=== PATIENT | male | born 1950 | race Two or more races ===

== ENCOUNTER 2019-01-23 17:47 | Inpatient (IN) | payer OTHER ==
[~2019-01-23] VITALS: Ht 182.9 cm; Wt 84.8 kg
--- NOTE | 2019-01-23 18:02 | NUR ---
GENERALIZED WEAKNESS AND SOB X YESTERDAY, HX OF LOW HEMOGLOBIN BLOOD TRANSFUSION 1 MONTH AGO. SKIN IS WARM, DRY, INTACT. NO ACUTE DISTRESS NOTED. AOX4, AMB, VSS, DJIBOUTIAN-SPEAKING. FAMILY AT BEDSIDE. READY FOR EVAL.
[2019-01-23] MEDS ORDERED: PANTOPRAZOLE 40 MG VIAL ONE (18:12)
[2019-01-23] MEDS ORDERED: INSU100I26 SQ (18:17)
[2019-01-23] MEDS ORDERED: SITA1TAB6 PO (18:17)
[2019-01-23] MEDS ORDERED: PANTOPRAZOLE 40 MG VIAL IV ONE (18:30)
[2019-01-23 18:37] LABS: BASOPHILS # (AUTO) 0.1 /CMM (0.0-0.2); EOSINOPHILS % (AUTO) 3.1 % (0.0-6.0); HEMATOCRIT 23 % (39-51); LYMPHOCYTES # (AUTO) 1.6 /CMM (0.8-4.8); LYMPHOCYTES % (AUTO) 20.1 % (20.0-44.0); MEAN CORPUSCULAR HGB CONC 30 g/dl (31.0-36.0); MEAN CORPUSCULAR VOLUME 72 fL (80-96); MONOCYTES # (AUTO) 0.6 /CMM (0.1-1.30); MONOCYTES % (AUTO) 7.3 % (2.0-12.0); NEUTROPHILS # (AUTO) 5.4 /CMM (1.8-8.9); NEUTROPHILS % (AUTO) 68.5 % (43.0-81.0); PLATELET COUNT (AUTO) 407 /CMM (150-450); RED BLOOD CELL COUNT(AUTO) 3.12 MIL/uL (4.5-6.0); WHITE BLOOD COUNT (AUTO) 7.8 K/uL (4.3-11.0)
[2019-01-23] MEDS ORDERED: GLIM4TAB2 PO (18:39)
[2019-01-23 18:43] LABS: HEMOGLOBIN 6.7 g/dL (13.5-17.5)
--- NOTE | 2019-01-23 18:46 | NUR ---
LAB WAS CALLED FOR STAT BLOOD ORDER
[2019-01-23 18:47] LABS: CALCIUM, SERUM 8.8 mg/dL (8.5-10.1); CREATININE 1.1 mg/dL (0.6-1.3); POTASSIUM 4.5 mmol/L (3.5-5.1)
[2019-01-23] MEDS ORDERED: INSULIN REGULAR, HUMAN 100 UNIT/ML 10 ML VIAL SQ ONE (19:00)
[2019-01-23] MEDS ORDERED: IV NS 0.9% 250 ML BAG IV ONE (19:00)
[2019-01-23 19:01] LABS: ALBUMIN 2.6 g/dL (3.4-5.0); BILIRUBIN,DIRECT 0.1 mg/dL (0.0-0.2); BILIRUBIN,TOTAL 0.2 mg/dL (0.2-1.0); TOTAL PROTEIN, SERUM 6.9 g/dL (6.4-8.2)
[2019-01-23] MEDS ORDERED: INSULIN REGULAR, HUMAN 100 UNIT/ML 10 ML VIAL ONE (19:17)
--- NOTE | 2019-01-23 19:18 | NUR ---
PT TAKEN TO RADIOLOGY VIA BENITA
[2019-01-23] MEDS ORDERED: CT SWABBABLE VALVE TRANS SET 1 EA INFUS.SET MC ONE (19:25)
[2019-01-23] MEDS ORDERED: IV NS 0.9% 250 ML IV ONE (19:25)
[2019-01-23] MEDS ORDERED: IOHEXOL-300 100 ML VIAL IV ONE (19:25)
--- NOTE | 2019-01-23 19:46 | NUR ---
PT BACK FROM RADIOLOGY. KARLA WELL. IVF INFUSING AND INSULIN GIVEN. WILL CONT TO MONITOR.
[2019-01-23 20:00] VITALS: BP 143/91
--- NOTE | 2019-01-23 20:18 | NUR ---
BLAINE CALLED TO READ CT RESULTS
[2019-01-23 20:21] LABS: BAND % (MANUAL) 1 % (0.0-5.0); EOSINOPHILS % (MANUAL) 5 % (0-4); LYMPHOCYTES % (MANUAL) 21 % (16-48); MONOCYTES % (MANUAL) 8 % (0-11.0); NEUTROPHILS % (MANUAL) 65 (42-76)
--- NOTE | 2019-01-23 20:55 | NUR ---
per onofre pt ok to get admitted here.
--- NOTE | 2019-01-23 20:56 | NUR ---
HOUSE SUP CALLED FOR ICU BED
--- NOTE | 2019-01-23 20:58 | NUR ---
ICU BED 254 GIVEN
--- NOTE | 2019-01-23 21:03 | NUR ---
DR FERGUSON CALLED AND TRANSFERRED TO DR TORRES
--- NOTE | 2019-01-23 21:04 | NUR ---
BLOOD TRANSFUSION VERIFIED WITH SHA PALMA. PRE-TRANSFUSION VITALS RECORDED. RATE SET TO 120 ML/HR PER MD ORDER. WILL CONT TO MONITOR OVER NEXT 15 MIN.
--- NOTE | 2019-01-23 21:11 | NUR ---
BEDSPREAD INSPECTOR CAMPGROUND CARETAKER WAS CALLED AND SPOKE TO DR TORRES
--- NOTE | 2019-01-23 21:27 | NUR ---
118-2 MORAIMA BED GIVEN
--- NOTE | 2019-01-23 21:51 | NUR ---
REPORT GIVEN TO SHA MEHTA FOR 118-2 MORAIMA
--- NOTE | 2019-01-23 22:06 | NUR ---
PT TRANSFERRED TO FLOOR. FIRST UNIT OF BLOOD STILL INFUSING.
[2019-01-23 22:15] VITALS: BP 143/91
--- NOTE | 2019-01-23 22:15 | NUR ---
TD RN NOTE: 1ST BAG OF PRBC STARTED IN ER. BLOOD STILL INFUSING AT THIS TIME. VITAL SIGNS STABLE. NO SIGNS/SYMPTOMS OF TRANSFUSION REACTION NOTED. WILL CONTINUE TO MONITOR PT.
--- NOTE | 2019-01-23 22:15 | NUR ---
OMAR MANAGER FINANCE NOTE: PT ADMITTED FROM ER VIA GURNEY. AND NIECE AT BEDSIDE. PT IS ALERT AND ORIENTED X4, HUNGARIAN SPEAKING ONLY. PT IS AMBULATORY. NO ACUTE DISTRESS NOTED. DENIES PAIN AND DISCOMFORT AT THIS TIME. ON 2LPM NASAL CANNULA, BREATHING EVEN AND UNLABORED WITH NORMAL RESPIRATIONS. PT HAS AN IV ON LEFT ANTECUBITAL #20, INTACT AND PATENT, NO SIGNS/SYMPTOMS OF INFILTRATION NOTED. ON TELE MONITOR SINUS TACHY HR 104BPM. PERTINENT ASSESSMENTS DONE, SCAB NOTED ON NECK, PICTURE TAKEN AND PLACED ON CHART. ADMISSION ORDERS CARRIED OUT AND DONE. KEPT CLEAN, DRY AND COMFORTABLE. CALL LIGHT PLACED WITHIN REACH. SAFETY AND FALL PRECAUTIONS OBSERVED AND MAINTAINED. WILL CONTINUE TO MONITOR PT.
[2019-01-23 22:22] VITALS: BP 143/91
[2019-01-23] MEDS ORDERED: ACETAMINOPHEN 325 MG TABLET PO PRN (22:30)
[2019-01-23] MEDS ORDERED: DEXTROSE 50%-WATER 50 ML DISP.SYRIN IV PRN (22:30)
[2019-01-23] MEDS: PANTOPRAZOLE 40 MG VIAL IV SCH (22:30)
[2019-01-23] MEDS ORDERED: ONDANSETRON HCL/PF 4 MG/2 ML VIAL IV PRN (22:30)
[2019-01-23] MEDS ORDERED: HYDROCODONE/APAP 5/325MG 1 EACH TABLET PO PRN (22:30)
[2019-01-23 23:00] VITALS: BP 129/76
--- NOTE | 2019-01-23 23:16 | NUR ---
TD RN NOTE: BLOOD SUGAR CHECKED 265MG/DL, INSULIN SLIDING SCALE NOT GIVEN. 6UNITS GIVEN IN ER. PT NPO. WILL CONTINUE TO MONITOR PT.
[2019-01-23] MEDS: BLOOD SUGAR DIAGNOSTIC 1 EACH STRIP IN SCH (23:19)
[2019-01-23] MEDS: INSULIN REGULAR, HUMAN 100 UNIT/ML 3 ML VIAL SQ PRN (23:22)
[2019-01-23] MEDS: INSULIN GLARGINE, 100 UNIT/ML CARTRIDGE SQ SCH (23:25)
[2019-01-23 23:55] VITALS: BP 133/73
[2019-01-24] VITALS (16 sets, daily range): BP systolic 120–141; BP diastolic 60–96
[2019-01-24] MEDS: BLOOD SUGAR DIAGNOSTIC 1 EACH STRIP IN SCH ×3 (05:13→17:32)
[2019-01-24] MEDS: INSULIN REGULAR, HUMAN 100 UNIT/ML 3 ML VIAL SQ PRN ×4 (05:18→23:57)
[2019-01-24] MEDS: IV NS 0.9% 1,000 ML IV PRN (05:33)
--- NOTE | 2019-01-24 06:35 | NUR ---
TD RN NOTE: NO CHANGES NOTED THROUGHOUT THE SHIFT. NO APPARENT DISTRESS NOTED. 3PRBCs GIVEN, NO SIGNS/SYMPTOMS OF BLOOD TRANSFUSION REACTION NOTED. VITAL SIGNS STABLE. ON TELE MONITOR SINUS RHYTHM HR 91BPM. IV ON LEFT ANTECUBITAL #20 INTACT AND PATENT, IVF INFUSING WELL. KEPT CLEAN, DRY AND COMFORTABLE. CALL LIGHT PLACED WITHIN REACH. SAFETY AND FALL PRECAUTIONS OBSERVED AND MAINTAINED. WILL ENDORSE TO DAY SHIFT RN FOR CONTINUITY OF CARE.
[2019-01-24 06:42] LABS: BASOPHILS # (AUTO) 0.1 /CMM (0.0-0.2); BASOPHILS % (AUTO) 1.1 % (0.0-2.0); EOSINOPHILS % (AUTO) 4.6 % (0.0-6.0); HEMATOCRIT 26 % (39-51); HEMOGLOBIN 8.2 g/dL (13.5-17.5); LYMPHOCYTES # (AUTO) 1.4 /CMM (0.8-4.8); LYMPHOCYTES % (AUTO) 16.7 % (20.0-44.0); MEAN CORPUSCULAR HGB CONC 32 g/dl (31.0-36.0); MEAN CORPUSCULAR VOLUME 74 fL (80-96); MONOCYTES # (AUTO) 0.7 /CMM (0.1-1.30); MONOCYTES % (AUTO) 8.9 % (2.0-12.0); NEUTROPHILS # (AUTO) 5.7 /CMM (1.8-8.9); NEUTROPHILS % (AUTO) 68.7 % (43.0-81.0); PLATELET COUNT (AUTO) 330 /CMM (150-450); RED BLOOD CELL COUNT(AUTO) 3.48 MIL/uL (4.5-6.0); WHITE BLOOD COUNT (AUTO) 8.3 K/uL (4.3-11.0)
[2019-01-24 06:47] LABS: CALCIUM, SERUM 8.2 mg/dL (8.5-10.1); CREATININE 0.8 mg/dL (0.6-1.3); POTASSIUM 4.3 mmol/L (3.5-5.1)
--- NOTE | 2019-01-24 07:30 | NUR ---
RN NOTES RECEIVED PATIENT ASLEEP, EASILY AWAKEN BY VERBAL STIMULI, A/O X4, EXPRESSES SELF BETTER IN FRENCH, ON OXYGEN SUPPORT VIA NASAL CANNULA AT 2LPM,NO SOB, SATING WELL, SINUS RHYTHM ON THE MONITOR HR AT 90'S. NO COMPLAINS OF PAIN AT THIS TIME. IV LINE ON THE LAC G 20: INTACT AND IN PLACE, PATENT. DRESSING C/D/I, NO SIGN OF INFECTION OR INFILTRATION NOTED AT THIS TIME. WITH ONGOING IVF OF NS RUNNING AT 100CC/HR. PATIENT REITERATED ON NPO STATUS, ENCOURAGED TO USE CALL LIGHT FOR ASSISTANCE. SAFETY MEASURES OBSERVED AND MAINTAINED, SIDERAILSX2 UP, BED LOW AND LOCKED, CALL LIGHT PLACED WITHIN REACH, WILL CONTINUE TO MONITOR PATIENT CLOSELY
--- NOTE | 2019-01-24 08:00 | NUR ---
RN NOTES SEEN AND EXAMINED BY DR. FERGUSON, WITH ORDERS MADE. ORDERS CARRIED OUT. CONSENT FOR PROCEDURE: INFERIOR VENA CAVA FILTER PLACEMENT, CONSENT FOR ANAESTHESIA AND CONSENT FOR BLOOD TRANSFUSION OBTAINED FROM THE PATIENT WITH THE ASSISTANCE OF HIS NIECE (MO).
[2019-01-24] MEDS: LINAGLIPTIN 5 MG TABLET PO SCH (09:00)
[2019-01-24] MEDS ORDERED: Medication Not On Formulary EA (Sitagliptin Phos/Metformin Hcl (Janumet 50-1,000 Mg Tabl PO SCH (09:00)
[2019-01-24] MEDS: METFORMIN 500 MG TABLET PO SCH (09:00)
[2019-01-24] MEDS: PANTOPRAZOLE 40 MG VIAL IV SCH ×2 (09:22→17:32)
--- NOTE | 2019-01-24 10:00 | NUR ---
RN NOTES CALLED [facility] AT THIS NUMBER TO REQUEST FOR MEDICAL RECORD. PER MAIL PROCESSOR, OFFICE IS CLOSE FOR THE WEEKEND AND WOULD BE OPEN ON SATURDAY AT 0800 AM.
[2019-01-24] MEDS ORDERED: CT SWABBABLE VALVE TRANS SET 1 EA INFUS.SET MC ONE (10:30)
[2019-01-24] MEDS ORDERED: IOHEXOL-300 100 ML VIAL IV ONE (10:30)
[2019-01-24] MEDS ORDERED: IV NS 0.9% 250 ML IV ONE (10:30)
--- NOTE | 2019-01-24 12:00 | NUR ---
RN NOTES DUE REGULAR INSULIN, 2 UNITS PER SLIDING SCALE NOT GIVEN DUE TO PATIENT ON NPO STATUS
[2019-01-24 12:35] LABS: APPEARANCE,URINE CLEAR (CLEAR); BILIRUBIN,URINE NEGATIVE (NEGATIVE); BLOOD, URINE 1+ Ery/uL (NEGATIVE); COLOR,URINE YELLOW (YELLOW); KETONES,URINE NEGATIVE (NEGATIVE); LEUKOCYTE ESTERASE ,URINE NEGATIVE (NEGATIVE); NITRITE, URINE NEGATIVE (NEGATIVE); PH,URINE 7.5 (5.0-8.0); PROTEIN,URINE TRACE mg/dl (NEGATIVE); UGLUCOSE 2+ mg/dL (NEGATIVE)
[2019-01-24 12:41] LABS: BACTERIA,URINE None seen /HPF (None Seen); WBC,URINE NONE SEEN /HPF (0-3)
[2019-01-24 12:42] LABS: SQUAMOUS EPITHELIAL CELL,UR Rare /HPF (None Seen)
[2019-01-24] MEDS ORDERED: LIDOCAINE 1% INJ 50 ML MDV IJ ONE (12:46)
[2019-01-24] MEDS ORDERED: IOHEXOL 50 ML IV ONE (12:46)
[2019-01-24] MEDS ORDERED: ANESTHESIA TRAY IN PYXIS 1 EA TRAY MC ONE (12:46)
--- NOTE | 2019-01-24 13:06 | NUR ---
RN NOTES PATIENT TRANSFERRED TO OPERATING ROOM ACCOMPANIED 2 RN AND TECH. NOT ON ANY FORM OF DISTRESS. VITAL SIGNS ARE FOLLOWS BP 133/75, HR AT 90, TEMP AT 98.7, RR AT 18 SATS AT 97% FAMILY AT BEDSIDE
--- NOTE | 2019-01-24 14:50 | NUR ---
RN NOTES PATIENT BACK TO THE UNIT S/P IVC FILTER INSERTION.PATIENT FLAT ON BED, REITERATED ON THE IMPORTANCE OF LYING FLAT IN BED FOR 4 HOURS ORDERED. PATIENT AWAKE AND ORIENTED, NOT ON ANY FORM OF DISTRESS, PLACED ON OXYGEN SUPPORT VIA NASAL CANNULA AT 2LPM, SATING AT 97%. VITAL SIGNS TAKEN AND NOTED AND FOLLOWS BP AT 133/75MMHG, HR AT 86. IV ATTACHED AND SET AT 100CC/HR. SITE ASSESS AND NOTED WITH CLEAN, DRY AND INTACT AT THIS TIME- WILL CHECK ORDERED.PATIENT PLACED BACK TO TELEMONITOR ENCOURAGE USE OF CALL LIGHT FOR ASSISTANCE WILL CONTINUE TO MONITOR PATIENT
[2019-01-24 15:00] LABS: ALBUMIN 2.3 g/dL (3.4-5.0); BILIRUBIN,DIRECT 0.2 mg/dL (0.0-0.2); BILIRUBIN,TOTAL 0.7 mg/dL (0.2-1.0); TOTAL PROTEIN, SERUM 6.3 g/dL (6.4-8.2)
--- NOTE | 2019-01-24 16:03 | NUR ---
RN NOTES SPOKE TO TERRELL (NIECE) TO TRANSLATE IN GETTING CONSENT FOR EGD. PATIENT AND NIECE REFUSED "EGN AND COLONOSCOPY WAS JUST RECENTLY DONE. PER TERRELL WILL TRY TO DROP BY AND GIVE COPY OF THE RESULT TODAY. CANDIDO MCGOVERN NP INFORMED.
--- NOTE | 2019-01-24 16:20 | NUR ---
RN NOTES IVC FILTER PLACEMENT SITE CHECK, DRESSING IN PLACE, DRY AND INTACT. NO BLEEDING OR ANY SORT OF DISCHARGE NOTED. PATIENT DENIES PAIN.
--- NOTE | 2019-01-24 17:00 | NUR ---
RN NOTES DUE REGULAR INSULIN 2 UNITS PER SLIDING SCALE NOT GIVEN DUE TO PATIENT NPO STATUS Addendum: 01/24/19 at 1841 by ANA PAULA ZARATE RN ADDENDUM OBTAIN COPIES OF ENDOSCOPY, COLONOSCOPY AND BIOPSY RESULT FROM THE FAMILY. SEND TO CANDIDO MCGOVERN NP. ALSO ATTACHED COPIES TO CHART
--- NOTE | 2019-01-24 19:05 | NUR ---
TD/RN INITIAL NOTES RECEIVED PT IN BED, A/OX4, DANISH SPEAKING. AT BEDSIDE. SR ON TELE. NO C/O PAIN AT THIS TIME. ON 2L O2 VIA NC, NO SOB NOTED. WITH ONGOING IVF NS AT 100 ML/HR INFUSING WELL ON RFA G20 IV. RHAND G20 HEPLOCK INTACT AND PATENT. SAFETY MEASURES IN PLACED. CALL LIGHT WITHIN REACH. WILL CONT TO MONITOR. PER ENDORSEMENT, PT IS FOR EGD WILLA AM PER ARABELLA MCGOVERN'S ORDER, PT/FAMILY REFUSED TO SIGNED CONSENT, ARABELLA MCGOVERN AWARE. PER AM RN, PT IS FOR NUCLEAR MED, TECH WILL RAIL MAINTENANCE WORKER PT ANYTIME. PT AND AWARE. WILL FOLLOW UP
--- NOTE | 2019-01-24 19:23 | NUR ---
RN NOTES PT WAS PICKED UP BY ELECTRICAL CONTROL ASSEMBLER FOR NUCLEAR MED IN STABLE CONDITION
--- NOTE | 2019-01-24 19:35 | NUR ---
RN NOTES ENDORSED PATIENT FOR CONTINUITY OF CARE. NO ACUTE CHANGES WITHIN THE SHIFT. IVC FILTER PLACEMENT SITE, CLEAN, DRY AND INTACT. NO BLEEDING OR DISCHARGES NOTED.ALL NURSING NEEDS ATTENDED AND MET. SAFETY MEASURES IN PLACE AT ALL TIME. CALL LIGHT WITHIN REACH
--- NOTE | 2019-01-24 20:50 | NUR ---
RN NOTES PT CAME BACK FROM RAD IN STABLE CONDITION, VS WERE TAKEN. CONNECTED BACK TO IVF NS AT 100 ML/HR. WILL CONT TO MONITOR
--- NOTE | 2019-01-24 21:08 | NUR ---
NM: GI BLEEDING IMAGING WAS COMPLETED. TECH:RB
[2019-01-24] MEDS: INSULIN GLARGINE, 100 UNIT/ML CARTRIDGE SQ SCH (21:31)
[2019-01-25] VITALS: BP 110/61
[2019-01-25] MEDS: BLOOD SUGAR DIAGNOSTIC 1 EACH STRIP IN SCH ×3 (00:01→12:32)
--- NOTE | 2019-01-25 00:44 | NUR ---
RN NOTES RECHECKED TEMPT=98.8
[2019-01-25 04:00] VITALS: BP 130/74
[2019-01-25] MEDS: IV NS 0.9% 1,000 ML IV PRN (04:00)
[2019-01-25] MEDS: INSULIN REGULAR, HUMAN 100 UNIT/ML 3 ML VIAL SQ PRN ×2 (05:53→12:34)
[2019-01-25 06:50] LABS: BASOPHILS # (AUTO) 0.1 /CMM (0.0-0.2); BASOPHILS % (AUTO) 1.7 % (0.0-2.0); EOSINOPHILS % (AUTO) 5.5 % (0.0-6.0); HEMATOCRIT 27 % (39-51); HEMOGLOBIN 8.3 g/dL (13.5-17.5); LYMPHOCYTES # (AUTO) 1.3 /CMM (0.8-4.8); LYMPHOCYTES % (AUTO) 19.5 % (20.0-44.0); MEAN CORPUSCULAR HGB CONC 31 g/dl (31.0-36.0); MEAN CORPUSCULAR VOLUME 74 fL (80-96); MONOCYTES # (AUTO) 0.7 /CMM (0.1-1.30); MONOCYTES % (AUTO) 10.3 % (2.0-12.0); NEUTROPHILS # (AUTO) 4.3 /CMM (1.8-8.9); PLATELET COUNT (AUTO) 358 /CMM (150-450); RED BLOOD CELL COUNT(AUTO) 3.57 MIL/uL (4.5-6.0); WHITE BLOOD COUNT (AUTO) 6.8 K/uL (4.3-11.0)
[2019-01-25 06:52] LABS: ALBUMIN 2.2 g/dL (3.4-5.0); BILIRUBIN,TOTAL 0.7 mg/dL (0.2-1.0); CREATININE 0.9 mg/dL (0.6-1.3); TOTAL PROTEIN, SERUM 6.4 g/dL (6.4-8.2)
--- NOTE | 2019-01-25 07:03 | NUR ---
RN NOTES PT IN STABLE CONDITION. NO ACUTE CHANGES THROUGHOUT SHIFT. SAFETY OBSERVED AT ALL TIMES. ALL NEEDS ANTICIPATED. ENDORSED TO AM SHIFT RN FOR [place]
[2019-01-25 08:00] VITALS: BP_SYST 134; BP_SYST 144; BP_DIAS 65; BP_DIAS 76
[2019-01-25 08:12] LABS: BAND % (MANUAL) 3 % (0.0-5.0); EOSINOPHILS % (MANUAL) 5 % (0-4); LYMPHOCYTES % (MANUAL) 17 % (16-48); MONOCYTES % (MANUAL) 7 % (0-11.0); NEUTROPHILS % (MANUAL) 68 (42-76)
[2019-01-25] MEDS: LINAGLIPTIN 5 MG TABLET PO SCH (08:31)
[2019-01-25] MEDS: METFORMIN 500 MG TABLET PO SCH (08:31)
[2019-01-25] MEDS: PANTOPRAZOLE 40 MG VIAL IV SCH (08:31)
[2019-01-25 12:00] VITALS: BP 133/72
[2019-01-25] MEDS ORDERED: PANT40TA2 PO (12:08)
[2019-01-25] MEDS ORDERED: FERR325T23 PO (12:09)
[2019-01-25] MEDS ORDERED: BISACODYL (5 MG) 5 MG TABLET.DR PO ONE (12:30)
--- NOTE | 2019-01-25 16:02 | NUR ---
RN NOTE PER PATIENT'S FAMILY MEMBER THE PATIENT'S LOWER DENTURE WAS WRAPPED UP IN THE KLEENX TISSUE AND LEFT ON THE WINDOW IN THE PATIENTS ROOM, NEXT TO HIS BED ON 01/24/19 IN THE EVENING, BEFORE THE PATIENT WAS TAKEN TO OPERATING ROOM. TODAY, 01/25/19 AROUND 1000 AM, AFTER BREAKFAST PATIENT AND HIS FAMILY MEMBER WAS LOOKING FOR THE DENTURE AND COULD NOT FIND ANYWHERE. THE PRIMARY NURSE IS NOTIFIED BY FAMILY MEMBER, AND PRIMARY NURSE LOOKED AROUND THE BED, AND EVEN CHECKED TRASH CAN WITH MINIMAL TRASH IN IT LOOKING THROUGH THE PAPER TOWELS AND TISSUES WITHOUT RESULT. CHARGE NURSE AWARE, NURSING BORDEREAU CLERK AWARE. ENVIRONMENTAL SERVICES NOTIFIED AND INQUIRED WITHOUT RESULT. LOWER DENTURE STILL MISSING. FAMILY NOTIFIED THAT ADMINISTRATION TO FOLLOW UP WITH MO [phone], OR TERRELL [phone]. INCIDENT REPORT NUMBER [id number].
--- NOTE | 2019-01-25 16:04 | NUR ---
RN NOTE PT DISCHARGED HOME WITH AND NIECE, MO, VIA OWN TRANSPORTATION. PT LEFT IN STABLE CONDITION, EXIT CARE DONE, DISCHARGE INSTRUCTIONS PROVIDED AND TEACHING DONE TO PT, AND NIECE MO REGARDING TO FOLLOWING UP WITH PRIMARY DOCTOR, PHOTOGRAMMETRIC SURVEYOR, AND GI DOCTOR. PT VERBALIZED UNDERSTANDING. PAPERS SIGNED AND COPIES PROVIDED TO PT. IV REMOVED, ID BAND REMOVED. PT REFUSED VACCINATION STATING THAT HE WILL FOLLOW UP WITH PRIMARY MD. BELONGINGS LIST SIGNED AND PROVIDED TO PT. PT HAS LOWER DENTURES MISSING. FAMILY AWARE, FOURDRINIER MACHINE OPERATOR AWARE.
[2019-01-25 17:39] LABS: OCCULT BLOOD STOOL NEGATIVE (NEGATIVE)
[2019-01-27 08:11] LABS: AFP, TUMOR MARKER 1.7 ng/mL (0.0-8.3); CARBOHYDRATE AG 19-9 113 U/mL (0-35)
== END 2019-01-25 15:41 | disposition home or self-care (01) | DRG 134 ==
LOC: ER 17:55 → ICU 21:00 → TELE-TD 21:15 → TELE1 01-24 08:00 → TELE-TD 01-24 08:25 → MEDSG1 01-25 10:57
PROVIDERS: ADMIT Internal Medicine; ATTEND Internal Medicine
PROC: 30233N1 Transfusion of Nonautologous Red Blood Cells into Peripheral Vein, Percutaneous Approach (ICD-10-PCS; 2019-01-23)
PROC: 06H03DZ Insertion of Intraluminal Device into Inferior Vena Cava, Percutaneous Approach (ICD-10-PCS; principal; 2019-01-24)
DX: I26.99 Other pulmonary embolism without acute cor pulmonale (principal); I21.A1 Myocardial infarction type 2; C78.7 Secondary malignant neoplasm of liver and intrahepatic bile duct; D68.59 Other primary thrombophilia; K92.2 Gastrointestinal hemorrhage, unspecified; I82.402 Acute embolism and thrombosis of unspecified deep veins of left lower extremity; D64.9 Anemia, unspecified; E11.9 Type 2 diabetes mellitus without complications; R74.0 Nonspecific elevation of levels of transaminase and lactic acid dehydrogenase [LDH]; I88.0 Nonspecific mesenteric lymphadenitis; E78.00 Pure hypercholesterolemia, unspecified; I10 Essential (primary) hypertension; R09.02 Hypoxemia; Z86.718 Personal history of other venous thrombosis and embolism; Z79.84 Long term (current) use of oral hypoglycemic drugs
CPT/HCPCS: 36415; 71045-TC; 71270-TC; 74018; 80048-TC; 80053-TC; 80061-TC; 80074; 80076-TC; 81000-TC; 82105; 82272-TC; 82378; 82728-TC; 82962-TC; 83540-TC; 84484-TC; 85025-TC; 85730-TC; 86301; 86850-TC; 86921-TC; 87081-TC; 93307-TC; 93970-TC; A6402; A9512; A9560; C1769; C1880; C1894; C9113; G0378; J1644; J1815; J2704; J3490; J7030; J7040; J7050; P9016-BL; Q9967